=== PATIENT | female | born 1985 | race African-American/Black ===

== ENCOUNTER 2021-08-31 21:44 | Emergency (ER) | payer SELFPAY ==
[~2021-08-31] VITALS: Ht 175.3 cm; Wt 71.0 kg
[2021-09-01 00:50] LABS: BASOPHILS % 0.4 % (0.0-2.0); EOSINOPHILS % 0.2 % (0.0-5.0); HEMOGLOBIN. 14.6 g/dL (12.0-16.0); MEAN CORPUSCULAR HEMOGLOBIN 29.9 pg (28.0-32.0); MEAN CORPUSCULAR VOLUME 88.1 fL (81.0-99.0); MEAN PLATELET VOLUME 7.9 fl (7.4-10.4); MONOCYTES % 3.1 % (2.0-8.0); NEUTROPHILS % 81.3 % (40.0-76.0); PLATELET 182 x1000/uL (130-400); RED BLOOD CELL COUNT 4.88 mill/uL (4.2-5.4); RED CELL DISTRIBUTION WIDTH 15.1 % (11.6-14.6)
[2021-09-01 00:57] LABS: CHLORIDE 107 mEq/L (98-107)
[2021-09-01] MEDS ORDERED: ACETAMINOPHEN 325MG TABLET PO NR (01:15)
[2021-09-01 01:44] LABS: CLARITY URINE CLEAR (CLEAR); COLOR URINE YELLOW (YELLOW); KETONES URINE TRACE (NEGATIVE); LEUKOCYTE ESTERASE URINE NEGATIVE (NEGATIVE); NITRITE URINE NEGATIVE (NEGATIVE); OCCULT BLOOD URINE 2+ (NEGATIVE); PROTEIN URINE NEGATIVE (NEGATIVE); SPECIFIC GRAVITY URINE 1.015 (1.005-1.030); UROBILINOGEN URINE 0.2 E.U./dL (0.2-1.0)
[2021-09-01 01:52] LABS: METHADONE URINE SCREEN NEGATIVE (NEGATIVE); OPIATES URINE SCREEN NEGATIVE (NEGATIVE)
[2021-09-01 01:53] LABS: *BARBITURATES SCREEN URINE NEGATIVE (NEGATIVE); *BENZODIAZEPINES SCREEN URINE NEGATIVE (NEGATIVE); *COCAINE SCREEN URINE NEGATIVE (NEGATIVE); CANNABINOID URINE SCREEN NEGATIVE (NEGATIVE)
[2021-09-01 01:54] LABS: PHENCYCLIDINE URINE SCREEN NEGATIVE (NEGATIVE)
[2021-09-01 01:56] LABS: *AMPHETAMINES SCREEN URINE PRESUMTIVE POSITIVE (NEGATIVE)
[2021-09-01 05:15] VITALS: BP 118/72
== END 2021-09-01 05:17 | disposition home or self-care (01) ==
LOC: ER 21:44
DX: R20.0 Anesthesia of skin (principal)
CPT/HCPCS: 36415; 71045; 80053; 80305; 81003; 81025; 82962; 85025; 93005; 99285